=== PATIENT | male | born 1955 | race Caucasian/White ===

== ENCOUNTER 2024-03-10 18:10 | Emergency (ER) | payer MEDICARE, SELFPAY ==
[2024-03-10 18:20] VITALS: BP 117/78
[2024-03-10 18:33] VITALS: BP 133/71
[2024-03-10 19:00] VITALS: BP 142/63
[2024-03-10] MEDS: ZOFRAN 4 MG IV (19:32)
[2024-03-10] MEDS: NSS 1000 IV (19:32)
[2024-03-10] MEDS: MORPHINE SULFATE 4 MG IV ×2 (19:33→22:39)
[2024-03-10 19:44] VITALS: BP 136/83
[2024-03-10 19:57] LABS: % Basophils 0.4 % (0-2); % Eosinophils 0.1 % (0-6); % Lymphocytes 4.8 % (20.5-51.1); % Monocytes 5.9 % (1.7-9.3); % Neutrophils 87.8 % (42.2-75.2); Absolute Basophils 0.1 10^3/uL (0-0.2); Absolute Immature Granulocytes 0.2 10^3/uL (0-0.05); Absolute Lymphocytes 0.8 10^3/uL (1.2-3.4); Absolute Neutrophils 14.5 10^3/uL (1.4-6.5); Hematocrit 48.7 % (39.0-52.0); Hemoglobin 15.9 g/dL (13.0-18.0); Mean Corp Hgb Conc. 32.6 g/dL (33.0-37.0); Mean Corpuscular Hgb 30.6 pg (27.0-31.0); Mean Corpuscular Volume 93.8 fL (80.0-94.0); Mean Platelet Volume 9.8 fL (7.4-10.4); Nucleated Red Blood Cells % 0 % (-); Platelet Count 274 10^3/uL (130-400); Red Blood Cell Count 5.19 10^6/uL (4.70-6.10); Red Cell Dist. Width 11.6 % (11.5-14.5); White Blood Cell Count 16.6 10^3/uL (4.8-10.8)
[2024-03-10 20:00] VITALS: BP 127/77
[2024-03-10 20:11] LABS: ALT (SGPT) 25 U/L (0-50); AST (SGOT) 27 U/L (17-59); Albumin 4.3 g/dl (3.5-5.0); Alkaline Phosphatase 92 U/L (38-126); Blood Urea Nitrogen 21 mg/dl (9-20); Calcium 8.9 mg/dl (8.4-10.2); Carbon Dioxide 28 mmol/L (22-30); Chloride 99 mmol/L (98-107); Glucose 160 mg/dl (70-99); Potassium 4.9 mmol/L (3.5-5.1); Sodium 135 mmol/L (135-145); Total Bilirubin 0.3 mg/dl (0.2-1.3); Total Protein 7.2 g/dl (6.3-8.2); eGFR > 60.00
[2024-03-10 20:17] LABS: Troponin I < 0.012 ng/ml
[2024-03-10] MEDS: MAALOX 40 PO (20:24)
[2024-03-10 20:30] LABS: D-Dimer 1.45 ug/mlFEU (0.00-0.50)
[2024-03-10] MEDS: PROTONIX IV 40 MG IV (22:38)
[2024-03-10] MEDS: ROCEPHIN 1000 MG IV (22:54)
[2024-03-10 23:15] LABS: COVID-19 Antigen Negative (Negative)
--- NOTE | 2024-03-10 23:21 | ED.GENMED ---
History of Present Illness
General
Chief Complaint: Chest Pain
Source: patient
Exam Limitations: none
Time Seen by Provider: 03/10/24 19:09
Nursing documentation reviewed up to this point in time: agreed with
History of Present Illness
History of Present Illness:
Patient to ED [facility] complaint of severe ant. chest pain. Staters he had a similar episode approx 1 week ago. He was evaluated at [facility]. Reports cardiac event was ruled out. He reports that his symptoms are most likely related to
esophagitis/GERD/gastritis. Takes Pepcid and carafate. Denies fever/chlls. Reports HINTON. Chest pain does not radiate. No associated nausea or diaphoresis. Brought to ED by family for eval. Took 324mg [employer]
Past History
Past History
ED Past Medical History: GERD
ED Past Surgical History: None
Review of Systems
Review of Systems
Allergies reviewed?: Yes
All Other Systems: ROS reviewed and negative except as documented in HPI and ROS
Constitutional: Reports no symptoms
EENT: Reports no symptoms
Respiratory: Reports trouble breathing
Cardiac: Reports chest pain
ABD/GI: Reports diarrhea (yesterday)
: Reports no symptoms
Musculoskeletal: Reports no symptoms
Skin: Reports no symptoms
Neurological: Reports no symptoms
Psychiatric: Reports no symptoms
Phy Exam
General Physical Exam
General Presentation: well appearing and no apparent distress
General age: appears stated age
General Skin: warm and dry
General Habitus: normal
Cardiovascular Exam
Cardiovascular Exam: regular rate/rhythm and no edema
Pulmonary Exam
Pulmonary Exam: lungs clear, no respiratory distress and chest non tender
Musculoskeletal Exam
Musculoskeletal Exam: full ROM and neuro vasc intact
Skin Exam
Skin Exam: normal color, warm/dry and no rash
Psychiatric Exam
Psychiatric Exam: normal mood/affect
Scores
Heart Score for Chest Pain Patients
STEMI patient?: No
History: Slightly or Non-Suspicious
ECG: Normal
Age: >/= 65 years
Risk Factors: 1 or 2 Risk Factors
Troponin: </= Normal Limit
Heart Score for Chest Pain Patients: 3
Heart Score Risk: 2.5% MACE over next 6 weeks
Course
Orders/Labs/Results
Orders:
Orders
03/10/24 18:13
Electrocardiogram (*1) Urgent
Reason for Study: Chest Pain
EKG- Treatment ONCE
03/10/24 19:21
CR Chest - 2 Views Urgent
Comment:
Reason For Exam: chestpain
03/10/24 19:22
0.9% Sodium Chloride 1000 ml [Nss] 1,000 ml IV BOLUS
Morphine Sulfate 4 mg IV NOW STA
Ondansetron Injectable [Zofran] 4 mg IV NOW STA
03/10/24 19:34
Complete Blood Count/With Diff Urgent
Comprehensive Metabolic Panel Urgent
D-Dimer Urgent
Troponin I Urgent
03/10/24 20:18
Mag Hydrox/Al Hydrox/Simeth [Maalox] 30 ml Phenobarb/Hyoscy/Atropine/Scop [] 10 ml PO NOW
03/10/24 20:22
Mag Hydrox/Al Hydrox/Simeth [Maalox] 30 ml .ROUTE .STK-MED ONE
Phenobarb/Hyoscy/Atropine/Scop [] 10 ml .ROUTE .STK-MED ONE
03/10/24 21:09
CT Chest Pe Study Urgent
Comment:
Reason For Exam: chest pain, elevated Ddimer
03/10/24 22:25
Amoxicillin 875 mg/Clav 125 mg [Augmentin 875 mg/125 mg] 1 tablet PO NOW STA
Morphine Sulfate 4 mg IV NOW STA
Pantoprazole [Protonix IV] 40 mg IV NOW STA
03/10/24 22:40
CefTRIAXone [Rocephin] 1,000 mg IV NOW STA
03/10/24 22:57
COVID-19 Antigen Urgent
Source: Nasal Swab
Influenza A+B Rapid Molecular Urgent
LENKA Source: Nasal Swab
Specimen Description:
Abnormal Lab Results
03/10/24
19:34
WBC 16.6 H 10^3/uL
(4.8-10.8)
MCHC 32.6 L g/dL
(33.0-37.0)
Abs Immat Gran (auto) 0.2 H 10^3/uL
(0-0.05)
Absolute Neuts (auto) 14.5 H 10^3/uL
(1.4-6.5)
Absolute Lymphs (auto) 0.8 L 10^3/uL
(1.2-3.4)
Absolute Monos (auto) 1.0 H 10^3/uL
(0.1-0.6)
Immature Gran % 1.0 H %
(0-0.5)
Neutrophils % 87.8 H %
(42.2-75.2)
Lymphocytes % 4.8 L %
(20.5-51.1)
D-Dimer 1.45 H ug/mlFEU
(0.00-0.50)
BUN 21 H mg/dl
(9-20)
Glucose 160 H mg/dl
(70-99)
03/10/24 19:34
03/10/24 19:34
Vital Signs
Initial and Last Documented VS:
Initial Vital Signs
Temp Pulse Resp BP Pulse Ox
98.5 F 82 16 117/78 96
03/10/24 18:20 03/10/24 18:20 03/10/24 18:20 03/10/24 18:20 03/10/24 18:20
Last Documented Vital Signs
Temp Pulse Resp BP Pulse Ox
98.5 F 88 29 127/77 97
03/10/24 22:00 03/10/24 20:15 03/10/24 20:15 03/10/24 20:00 03/10/24 20:15
*Radiology
Radiology exam reviewed: radiology read reviewed
*Pulse Oximetry
Patient hypoxic: no
*Critical Care Note
Total Time (30-74mins, 75-104mins- exclusive of procedures): Not Applicable
Update Note
Update Note:
Patient to ED with complaint of chest pain. Had a similar event approx 1 week ago. Evaluated at [facility] ([facility]), non cardiac etiology. Labs reviewed. EKG, NSR, Troponin neg. Ddimer elevated. No history of DVT/PE but he does report HINTON. CT chest
completed, no evidence of PE. Bibasilar opacities noted. Atelectasis vs pneumonia. WBC elevated at 14.6. PPulse ox 97% RA. Will place on antibiotics to treat pneumonia. He did not feel that he could tolerate po antibitic tonight, requested IV
antibiotic instead. Rocephin given. Rx [facility] augmentin [facility] He is discharged home with his son. No distress noted while in ED. Given instructions on s/s to return to ED and he is agreeable to plan
ED Attending Note
-
Portions of this chart may have been created with voice recognition software.� Occasional wrong word or��sound alike� substitutions may have occurred due to the inherent limitations of voice recognition software.
Discharge Plan
Departure
Patient Disposition: Home (Routine Discharge)
Date of Disposition: 03/10/24
Time of Disposition: 22:43
Patient with high blood pressure during this ER visit?: No
Condition: Good
Covid-19: Not Applicable
Discharge Problem:
Pneumonia
Instructions: Pneumonia
Prescriptions:
New
amoxicillin-pot clavulanate 875-125 mg tablet
1 tab PO BID Qty: 20 0RF
azithromycin [Zithromax] 250 mg tablet
250 mg PO DAILY Qty: 6 0RF
Rx Instructions:
Take 2 tablets by mouth on day one, and then one tablet daily for the next 4 days.
Referrals:
UNKNOWN - PT NOT,INTERVIEWE [Family Provider] -
Interventions
Interventions:
*Risk Screen - Suicide Last Done: 03/10/24 18:20
*General Assessment Last Done: 03/10/24 18:20
*Neglect/Abuse Screening Last Done: 03/10/24 18:20
ED- Fall Risk Assessment Last Done: 03/10/24 20:13
*ED COVID-19 Vaccine History Last Done: 03/10/24 18:20
*Nursing Disposition Last Done: 03/10/24 23:21
ED- Cardiac Assessment Last Done: 03/10/24 19:48
Discharge Date and Time
Discharge Date/Time: 03/10/24 23:22
Print Language: IRISH
== END 2024-03-10 23:22 | disposition home or self-care (01) ==
LOC: EMR 18:10
PROVIDERS: Nurse Practitioner; EMERGENCY PHYSICIAN Emergency Medicine
DX: J18.9 Pneumonia, unspecified organism (principal); K21.9 Gastro-esophageal reflux disease without esophagitis
CPT/HCPCS: 99284; 96374; 96375; 96376; 96361; 71046; 71275; 80053; 84484; 85025; 85379; 87502; 87811; 93005; Q9967

== ENCOUNTER 2024-03-31 01:35 | Emergency (ER) | payer MEDICARE, SELFPAY ==
[2024-03-31 01:41] VITALS: BP 135/98
[2024-03-31 02:11] LABS: Urine Albumin Negative (Neg - Trace); Urine Bilirubin Negative (Negative); Urine Character Clear (Clear); Urine Color Yellow; Urine Glucose Negative (Negative); Urine Ketone Negative (Negative); Urine Leukocyte Negative (Negative); Urine Nitrite Negative (Negative); Urine Occult Blood Negative (Negative); Urine Specific Gravity 1.005 (<1.030); Urine Urobilinogen Negative (Neg - 1+)
--- NOTE | 2024-03-31 02:28 | ED.GENMED ---
History of Present Illness
General
Chief Complaint: Male Genito-Urinary Symptoms
Source: patient
Exam Limitations: none
Time Seen by Provider: 03/31/24 02:28
Nursing documentation reviewed up to this point in time: agreed with
History of Present Illness
History of Present Illness:
Patient presents to ED secondary to inability to urinate starting this evening, with lower abdominal pressure sensation. Over the past 1 week, patient has had difficult time urinating, requiring turning on the faucet as well as manual extension of
his penile shaft to facilitate with urination. Denies fever or chills. Denies nausea or vomiting. Denies trauma. Denies previous history of similar symptoms.
Past History
Past History
ED Past Medical History: GERD
ED Past Surgical History: None
Review of Systems
Review of Systems
Allergies reviewed?: Yes
All Other Systems: ROS reviewed and negative except as documented in HPI and ROS
Constitutional: Reports no symptoms; Denies fever
ABD/GI: Reports abdominal pain; Denies nausea or vomiting
: Reports difficulty voiding
Musculoskeletal: Reports no symptoms
Skin: Reports no symptoms
Neurological: Reports no symptoms
Phy Exam
Physical Exam
Physical Exam:
Physical Exam
General: mild distress, not acutely ill. afebrile
Head: nc/at. eomi
Neck: supple. normal range of motion
Abdomen: normal bowel sounds. not tender.
Neuro: alert and oriented x 3. no focal neurological deficits
Skin: no rash
Psychiatric: well kept. interactive and cooperative
Extremities: no edema. no calf tenderness.
Course
Orders/Labs/Results
Orders:
Orders
03/31/24 02:04
Bladder Scan As Directed
Follow Bladder Retention/Intermittent Cath Algorithm?: Yes
PRN if no void in __ hours: 12
Frequency: Per Retention Algorithm
If Bladder Scan Result >: 400
then:: Straight cath
Place catheter
Catheter- Indwelling As Directed
Reason for insertion: Acute Retention
Size: 16
Discontinue Date/Time: 04/03/24 0600
03/31/24 02:06
Urinalysis Urgent
Date Specimen was Collected: 03/31/24
Time Specimen was Collected: 02:04
Vital Signs
Initial and Last Documented VS:
Initial Vital Signs
Temp Pulse Resp BP Pulse Ox
97.4 F 98 28 135/98 98
03/31/24 01:41 03/31/24 01:41 03/31/24 01:41 03/31/24 01:41 03/31/24 01:41
Last Documented Vital Signs
Temp Pulse Resp BP Pulse Ox
97.4 F 78 20 136/84 98
03/31/24 01:41 03/31/24 02:53 03/31/24 02:53 03/31/24 02:53 03/31/24 02:53
MDM/Problems Addressed
MDM/Problems Addressed:
Bladder scan: > 800 mL urine noted
Portillo catheter inserted and 1 L urine removed, with significant improvement symptoms. Patient will be discharged home in stable condition, with leg bag, with referral to urology for an outpatient evaluation.
*Critical Care Note
Total Time (30-74mins, 75-104mins- exclusive of procedures): Not Applicable
ED Attending Note
-
Portions of this chart may have been created with voice recognition software.� Occasional wrong word or��sound alike� substitutions may have occurred due to the inherent limitations of voice recognition software.
Discharge Plan
Departure
Patient Disposition: Home (Routine Discharge)
Date of Disposition: 03/31/24
Time of Disposition: 02:28
Patient with high blood pressure during this ER visit?: Yes
Discharge Problem:
Acute urinary retention
Instructions: Urinary Retention (DC)
Prescriptions:
No Action
amoxicillin-pot clavulanate 875-125 mg tablet
1 tab PO BID Qty: 20 0RF
azithromycin [Zithromax] 250 mg tablet
250 mg PO DAILY Qty: 6 0RF
Rx Instructions:
Take 2 tablets by mouth on day one, and then one tablet daily for the next 4 days.
Referrals:
Ciro Mcintyre MD [Active] -
Activity Restrictions/Additional Instructions:
As discussed, please follow up with referred urologist for further evaluation and treatment.
Interventions
Interventions:
*Risk Screen - Suicide Last Done: 03/31/24 01:41
*General Assessment Last Done: 03/31/24 02:01
*Neglect/Abuse Screening Last Done: 03/31/24 01:41
ED- Fall Risk Assessment Last Done: 03/31/24 02:01
*Nursing Disposition Last Done: 03/31/24 02:53
ED-Male Genitourinary Assessment Last Done: 03/31/24 02:01
Discharge Date and Time
Discharge Date/Time: 03/31/24 02:56
Print Language: PORTUGUESE
[2024-03-31 02:53] VITALS: BP 136/84
--- NOTE | 2024-04-01 15:51 | TRANSFER ---
Patient has old latex winchester removed by this RN. New 14 F winchester latex free placed with urojet given per md winchester verbal order. Patient tolerated procedure.
== END 2024-03-31 02:56 | disposition home or self-care (01) ==
LOC: EMR 01:35
PROVIDERS: EMERGENCY PHYSICIAN Emergency Medicine; FAMILY PHYSICIAN Internal Medicine
DX: R33.9 Retention of urine, unspecified (principal); R03.0 Elevated blood-pressure reading, without diagnosis of hypertension
CPT/HCPCS: 99283; 51798; 51702; 81003

== ENCOUNTER 2024-04-07 13:18 | Inpatient (IN) | payer MEDICARE, SELFPAY ==
[2024-04-07] VITALS (7 sets, daily range): BP systolic 103–133; BP diastolic 70–78; BMI 29.7; BMI 29.5
--- NOTE | 2024-04-07 00:08 | ED.GENMED ---
History of Present Illness
General
Chief Complaint: Dizziness
Source: patient
Exam Limitations: none
Time Seen by Provider: 04/07/24 00:08
Nursing documentation reviewed up to this point in time: agreed with
History of Present Illness
History of Present Illness:
This a pleasant 68-year-old male presents the emergency department with palpitations and chest discomfort. Patient has a history of GERD and is unable to take NSAIDs. Patient has BPH and has an indwelling Portillo catheter. Patient has had burning
chest pain which she has attributed to his reflux. Tonight he had a different type of chest pain, exacerbated with deep breathing. He states that this is distinctly different than the pain he is used to. Patient denies fever, chills, nausea or
vomiting. He denies shortness of breath.
Past History
Past History
ED Past Medical History: GERD
ED Past Surgical History: None
Phy Exam
General Physical Exam
General Presentation: well appearing and no apparent distress
General Skin: warm and dry
General Habitus: normal
General Mental: alert
General Hydration: appears well hydrated
ENT Exam
ENT Exam: EOMI, pharynx normal, neck supple and normocephalic
Eye Exam
Eye Exam: PERRL, cornea clear and conjunctiva normal
Cardiovascular Exam
Cardiovascular Exam: regular rate/rhythm, no edema, no murmur, normal peripheral pulses and other (No friction rub)
Pulmonary Exam
Pulmonary Exam: lungs clear, no respiratory distress, no rales, no crackles, no rhonchi, no stridor, no wheezing and no cough
Gastrointestinal Exam
Gastrointestinal Exam: normal bowel sounds, non tender, soft, no organomegaly, no pulsatile mass and non distended
Genitourinary Exam Male
Exam Male: other (Portillo catheter)
Neurological Exam
Neurological Exam: alert, oriented x3, no motor deficits and speech normal
Musculoskeletal Exam
Musculoskeletal Exam: full ROM and no edema
Skin Exam
Skin Exam: normal color, warm/dry, no rash and no petechia
Psychiatric Exam
Psychiatric Exam: normal mood/affect
Course
Orders/Labs/Results
Orders:
Orders
04/07/24
Electrocardiogram (*1) Stat
Reason for Study: Chest Pain
Comment: DONE NO ORDER ENTERED
04/07/24 00:02
Electrocardiogram (*1) Urgent
Reason for Study: Vertigo / Dizzy
EKG- Treatment ONCE
04/07/24 00:17
CXR2 [CR Chest - 2 Views ] Urgent
Comment:
Reason For Exam: chest pain
04/07/24 00:18
Complete Blood Count/With Diff Urgent
Comprehensive Metabolic Panel Urgent
Troponin I Urgent
04/07/24 01:17
CT Chest PE Study Urgent
Comment:
Reason For Exam: tachy, sudden dyspnea
04/07/24 03:37
HYDROmorphone [Dilaudid] 0.5 mg IV NOW STA
04/07/24 04:00
Admit/Transfer Patient As Directed
Co-Sign Provider:
Level of Care: Observation services
Assign to:: Telemetry
Physician / Group: hospitalist
Diagnosis: pericardial effusion
Reason for Telemetry: Chest Pain syndromes
Date to Stop Telemetry: 04/09/24
Time to Stop Telemetry: 11:00
Flush (0.9% Sodium Chloride) [Flush (Nss)] See Dose Instructions IV PER PROTOCOL
PRN Pain Medication Management As Directed
May give lesser potent ordered pain med per pt: Yes
preference::
Protocol:: Medication orders for pain may be administered in a
manner that supports deferring to patient preference
when the pt is:
- Requesting an ordered lesser potent pain medication.
Least to most potent pain medications are defined
as: acetaminophen < NSAID < tramadol < opioids
(morphine, oxycodone, hydromorphone).
- Requesting a lesser dose of the same medication IF
ORDERED.
- Requesting a less intrusive route of administration
if both routes are prescribed by the provider (PO <
IV).
04/07/24 04:01
Code Status As Directed
Resuscitation Status: Full Code
04/07/24 Breakfast
Cholesterol Lowering
At Your Request: Full Participation
Does patient need a safe tray?: No
Cholesterol Lowering: Sodium, 2 Gram
Levothyroxine [Synthroid] 50 mcg PO DAILY @ 0600
04/07/24 06:11
Acetaminophen [Tylenol] 650 mg PO Q6HPRN PRN
HYDROmorphone [Dilaudid] 0.5 mg IV Q4HPRN PRN
Mag Hydrox/Al Hydrox/Simeth [Maalox] 30 ml PO QIDPRN PRN
Ondansetron Injectable [Zofran] 4 mg IV Q6HPRN PRN
04/07/24 06:11
Add On- LAB Routine
Tests Added?: Body Fluid Triglycerides
Echo 2D MMode Color/Doppler Routine
Reason for Study: chest pain, ?pericardial effusion?
CARDIOLOGY CONSULT Routine
Consulting Provider: Rob Grande
Was physician already notified: No
Reason for consult: chest pain, pericardial effusion
Consult Notification Routine
Specialty to Notify: Cardiology
Date consulting provider notified: 04/07/24
Time consulting provider notified: 07:00
Notified:: Provider
Comment: tt
Consult Notification Routine
Specialty to Notify: IRAD (Interventional Radiology)
Date consulting provider notified: 04/07/24
Time consulting provider notified: 07:00
Notified:: Provider
Comment: tt
IRAD CONSULT Routine
Consulting Provider: Federico Teran
Was physician already notified: No
Reason for Consult/Procedure: diagnostic thoracentesis, L pleural effusion
Acknowledgement that appropriate orders are entered: Yes
Body Fluid Cell Count Routine
What is the Body Fluid: pleural fluid
Comment: post procedure
Body Fluid Glucose Routine
Fluid Source: Pleural
Body Fluid LDH Routine
Fluid Source: Pleural
Body Fluid Protein Routine
Fluid Source: Pleural
Body Fluid pH Routine
Fluid Source: Pleural
Fluid Culture with Gram Stain Routine
LENKA Source: Pleural Fluid
Specimen Description:
Comment: post procedure
Activity As Directed
Activity Level: With Assistance
INT (Intravenous Needle Therapy) As Directed
Comment: maintain peripheral IV access
Intake/ Output As Directed
Frequency: Per unit guidelines
Pneumatic Compression Sleeves As Directed
Type: Knee high
Vital Signs As Directed
Frequency: q4h
Weight As Directed
Frequency: Once
O2 Therapy [RESP] Routine
Nasal Cannula Liter Flow: 2 LPM
Titrate/Wean O2 to maintain O2 sat greater than (%): 90
Special Instructions: 2 liters/minute as needed for pulse oximetry less than 90%
Pulse Ox/spot Check [RESP] Routine
Quantity: 1
Special Instructions: on admission and then every shift if on oxygen
DX Deep Vein Thrombosis Video Routine
04/07/24 08:00
Famotidine [Pepcid] 20 mg PO BID
Pantoprazole [Protonix] 40 mg PO BID
Tamsulosin [Flomax] 0.4 mg PO BID
04/07/24 20:00
Colchicine 0.6 mg PO BID
04/08/24 06:00
Electrocardiogram (*1) IN AM
Reason for Study: Chest Pain
Comment: at admission and Q3H for total of 3, to be done with each troponin
CRP [C-Reactive Protein] IN AM
Cardiovascular Evaluation IN AM
ESR [Erythrocyte Sed Rate] IN AM
Glycohemoglobin (HgbA1c) IN AM
LDH IN AM
Comment: post procedure, add on to morning labs if already drawn
NT-proBNP IN AM
Total Protein IN AM
Comment: post procedure, add on to morning labs if already drawn
04/09/24 11:00
DC Protocol for Telemetry ONCE
Abnormal Lab Results
04/07/24
00:18
WBC 11.3 H 10^3/uL
(4.8-10.8)
MCHC 32.8 L g/dL
(33.0-37.0)
MPV 10.6 H fL
(7.4-10.4)
Abs Immat Gran (auto) 0.1 H 10^3/uL
(0-0.05)
Absolute Neuts (auto) 8.5 H 10^3/uL
(1.4-6.5)
Absolute Monos (auto) 1.0 H 10^3/uL
(0.1-0.6)
Immature Gran % 0.8 H %
(0-0.5)
Neutrophils % 75.5 H %
(42.2-75.2)
Lymphocytes % 13.5 L %
(20.5-51.1)
Glucose 130 H mg/dl
(70-99)
04/07/24 00:18
04/07/24 00:18
Vital Signs
Initial and Last Documented VS:
Initial Vital Signs
Pulse Resp
107 25
04/07/24 00:09 04/07/24 00:09
Last Documented Vital Signs
Temp Pulse Resp BP Pulse Ox
98.3 F 97 20 117/75 96
04/07/24 19:00 04/07/24 19:00 04/07/24 19:00 04/07/24 19:00 04/07/24 19:00
*Critical Care Note
Total Time (30-74mins, 75-104mins- exclusive of procedures): Not Applicable
Update Note
Update Note:
IMPRESSION:
Comparison with 03/10/24.
Good bolus, minimal motion. No evidence of pulmonary embolism
No evidence of aortic dissection or aneurysm.
Moderate left pleural effusion. Small right pleural effusion.
Small pericardial effusion, slightly increased vs prior.
Findings favor pulmonary edema.
Differential for the pericardial effusion includes pericarditis.
Dependent atelectasis.
EKG shows sinus tachycardia rate of 106 with normal intervals, normal axis. No evidence of acute ischemia present.
Discussed CT scan findings with patient, given his chest pain and his difficulty breathing, patient to be brought in for continued observation. Patient cannot take NSAIDs due to extreme gastritis.
ED Attending Note
-
Portions of this chart may have been created with voice recognition software.� Occasional wrong word or��sound alike� substitutions may have occurred due to the inherent limitations of voice recognition software.
Discharge Plan
Departure
Patient Disposition: Admit
Date of Disposition: 04/07/24
Time of Disposition: 02:54
Presentation/result/management discussed w/ accepting MD/DO: Hospitalist
Discharge Problem:
Acute pericardial effusion, Bilateral pleural effusion, Chest pain
Interventions
Interventions:
*Risk Screen - Suicide Last Done: 04/07/24 06:17
*General Assessment Last Done: 04/07/24 00:05
*Neglect/Abuse Screening Last Done: 04/07/24 06:07
ED- Fall Risk Assessment Last Done: 04/07/24 06:07
*ED COVID-19 Vaccine History Last Done: 04/07/24 06:17
*Nursing Disposition Last Done: 04/07/24 06:07
ED- Neurological Assessment Last Done: 04/07/24 01:28
ED- Cardiac Assessment Last Done: 04/07/24 06:11
ED Swallowing Screen Last Done: 04/07/24 04:03
Discharge Date and Time
Discharge Date/Time: 04/07/24 06:12
[2024-04-07 00:29] LABS: % Basophils 0.6 % (0-2); % Eosinophils 1.1 % (0-6); % Immature Granulocytes 0.8 % (0-0.5); % Lymphocytes 13.5 % (20.5-51.1); % Monocytes 8.5 % (1.7-9.3); % Neutrophils 75.5 % (42.2-75.2); Absolute Basophils 0.1 10^3/uL (0-0.2); Absolute Eosinophils 0.1 10^3/uL (0-0.7); Absolute Immature Granulocytes 0.1 10^3/uL (0-0.05); Absolute Lymphocytes 1.5 10^3/uL (1.2-3.4); Absolute Neutrophils 8.5 10^3/uL (1.4-6.5); Hemoglobin 14.1 g/dL (13.0-18.0); Mean Corp Hgb Conc. 32.8 g/dL (33.0-37.0); Mean Corpuscular Hgb 29.7 pg (27.0-31.0); Mean Corpuscular Volume 90.7 fL (80.0-94.0); Mean Platelet Volume 10.6 fL (7.4-10.4); Nucleated Red Blood Cells % 0 % (-); Platelet Count 329 10^3/uL (130-400); Red Blood Cell Count 4.74 10^6/uL (4.70-6.10); Red Cell Dist. Width 12.2 % (11.5-14.5); White Blood Cell Count 11.3 10^3/uL (4.8-10.8)
[2024-04-07 00:42] LABS: ALT (SGPT) 33 U/L (0-50); AST (SGOT) 27 U/L (17-59); Albumin 3.8 g/dl (3.5-5.0); Alkaline Phosphatase 94 U/L (38-126); Blood Urea Nitrogen 16 mg/dl (9-20); Carbon Dioxide 26 mmol/L (22-30); Chloride 99 mmol/L (98-107); Estimated Creatinine Clearance 59 ml/min; Glucose 130 mg/dl (70-99); Potassium 4.3 mmol/L (3.5-5.1); Sodium 137 mmol/L (135-145); Total Bilirubin 0.4 mg/dl (0.2-1.3); Total Protein 6.9 g/dl (6.3-8.2); eGFR > 60.00
[2024-04-07 00:58] LABS: Troponin I < 0.012 ng/ml
--- NOTE | 2024-04-07 03:38 | HPS.HSE ---
Family Physician
-
Family Physician: Cristiano Barraza MD
Chief Complaint
-
Chest pain
History of Present Illness
This is a 68-year-old with past medical history significant for GERD, BPH currently with indwelling cath who presents to the emergency department with episode of chest pain and tachycardia.
Patient reports history of severe GERD which she reports as a burning sensation that radiates into his chest. He reports exacerbation of GERD recently due to his travel to visit his father who is in hospice. Upon return he is continue to take his
usual medications and feels like his GERD is somewhat under control. He reported that he was otherwise in usual state of health tonight when he suddenly developed more shortness of breath. He reported that he had chest pain with inspiration. He
denies any diaphoresis. He denies of feeling dizzy or lightheaded. Patient denies any ankle edema. He denies any history of orthopnea or dyspnea on exertion. He has had prior stress test which have been negative. Patient denies palpitations.
He reported that he had recent upper respiratory symptoms while visiting his father and that has resolved. He denies having fevers or chills. He denied having a cough. Patient denies any other medications.
Recent health has been complicated by development of BPH requiring indwelling catheter. He is pending follow-up voiding trial this week.
In the emergency department he was afebrile, blood pressure of 135/98 with a pulse of 98. ECG shows sinus tachycardia at 106. He had criteria for low voltage QRS. No acute ST or T wave changes. Nonspecific T wave abnormalities in the inferior
leads. CBC was unremarkable. Electrolytes BUN/creatinine were unremarkable. Troponin was negative at 0.[address] chest angiogram shows moderate left pleural effusion, small right pleural effusion and a small pericardial effusion slightly
increased from prior imaging. Findings favor pulmonary edema with differential for pericardial effusion including pericarditis.
Medical History
Past Medical History
Past Medical History: Reports GERD and Other (BPH)
Past Surgical History: Reports None
Social History
Tobacco: Non-smoker
Alcohol: None
Drug: None
Personal:
Living: With Family
Employment: Retired
Family History
Family History: Not pertinent
Allergies / Home Medications
Allergies reflects when Allergies were last updated in [employer].
Home Medications with original date entered in [employer]
Allergy/Medication List:
Allergies
Allergy/AdvReac Type Severity Reaction Status Date / Time
latex Allergy Rash Verified 03/31/24 01:43
Home Medications
Rabeprazole 20 mg tablet 20 mg p.o. twice daily
Pepcid 20 mg tablet 20 mg p.o. twice daily
Synthroid 50 mcg tablet 50 mcg p.o. daily
Tamsulosin 0.4 mg capsule, 0.4 mg p.o. twice daily
Review of Systems
-
History Source: Patient
Constitutional: Reports No Symptoms
EENT: Reports No Symptoms
Respiratory: Reports No Symptoms
Cardiac: Reports Chest Pain
Abdomen/GI: Reports No Symptoms
: Reports No Symptoms
Musculoskeletal: Reports No Symptoms
Skin: Reports No Symptoms
Neurological: Reports No Symptoms
Endocrine: Reports No Symptoms
Hematologic/Lymphatic: Reports No Symptoms
Psych: Reports No Symptoms
Physical Exam
Physical Exam
General: Well Developed, Well Nourished and Pain
HEENT: NormoCephalic, Anicteric, Moist mucous membranes and Atraumatic
Respiratory: Clear
Cardiac: S1/S2 and Regular Rhythm
Breast: Deferred by me
GI: Soft, Non Tender, Non Distended and Normal Bowel Sounds
Rectal: Deferred by Provider
Genito-urinary: Clear Urine
Musculoskeletal: No Clubbing, No Cyanosis and No Edema
Skin: Warm
Neuro: AO x 3 and Nonfocal/grossly intact
Hematologic/Lymphatic: No Lymphadenopathy
Psych: Calm
Laboratory Results
-
04/07/24 00:18
01/19/25 00:18
Laboratory Results
Total Bilirubin 0.4 mg/dl (0.2-1.3) 04/07/24 00:18
AST 27 U/L (17-59) 04/07/24 00:18
ALT 33 U/L (0-50) 04/07/24 00:18
Alkaline Phosphatase 94 U/L (38-126) 04/07/24 00:18
Troponin I < 0.012 ng/ml 04/07/24 00:18
Data Reviewed
-
Diagnostic Radiology: Image Personally Visualized and interpreted
CT Scan: Report Reviewed by me
Medical Tests (Nuc Med, Echo, EKG etc): Image Personally Visualized and interpreted
Lab Data: Labs Reviewed by me
Old Records: Reviewed
Impression/Plan
-
IMPRESSION:
Patient with pleuritic chest pain found to have pericardial effusion as well as bilateral pleural effusions. Concern for pericarditis. Imaging suggests development of pleural effusion since Mar 10. Xray on with possible PNA. Xray today
without consolidation but shows moderate left and small right pleural effusions which way be related to pericarditis/inflammation possible secondary to recent viral infection. No h/o connective tissue disease. Troponin is negative and patient has
no h/o CAD. No PE on the CT angio.
PLAN:
1. Chest pain - Pleuritis with pericardial effusion, pleural effusions. Low voltages on ECG but no ischemia. Trop negative. Suspect acute pericarditis. HD stable and patient without signs of tamponade.
- admit to telemetry
- check crp/esr
- IR for L sided thoracentesis to rule out infection/malignancy
- check bnp, Echo
- cannot tolerate NSAIDs due to severe GERD, Colchicine 1mg q 12 x 1 day, then 0.5mg q 12
- cardiology consult
2. BPH
- maintain urinary catheter
- continue tamsulosin 0.4 bid
3. GERD
- rabeprazole 20mg bid
- pepcid 20mg bid
- prn maalox
DVT PPX - SCD for now
Code status - Full code
[2024-04-07] MEDS: DILAUDID 0.5 MG IV ×2 (03:51→18:27)
--- NOTE | 2024-04-07 07:02 | W.PN.HOSP.TC ---
Today's Communication/Plan
-
pain control
trial colchicine 0.6 mg BID
ID eval
IR eval left pleural effusion thoracentesis
Follow up ECHO tomorrow Monday
Assessment / Plan
Assessment / Plan
Physical Exam
General: No acute distress appears comfortable
HEENT: NormoCephalic, Anicteric, Moist mucous membranes and Atraumatic
Respiratory: decreased breath sounds basilar
Cardiac: S1/S2 and Regular Rhythm
GI: Soft, Non Tender, Non Distended and Normal Bowel Sounds
Genito-urinary: Clear Urine Portillo in place (placed prior to admission outpatient, planned for outpatient trial of void later in the week)
Musculoskeletal: No Clubbing, No Cyanosis and No Edema
Skin: Warm
Neuro: AO x 3 and Nonfocal/grossly intact
Psych: Calm
68M pleuritic chest pain found to have pericardial effusion as well as bilateral pleural effusions. Concern for pericarditis. Imaging suggests development of pleural effusion since Mar 10. X-ray on with possible PNA. X-ray this
hospitalization without consolidation but shows moderate left and small right pleural effusions which way be related to pericarditis/inflammation possible secondary to recent viral infection. No h/o connective tissue disease. Troponin is negative
and patient has no h/o CAD. No PE on the CT angio.
PLAN:
# Chest pain - Pleuritis with pericardial effusion, pleural effusions.
#Suspect acute pericarditis.
-Trop neg
-HD stable and patient without signs of tamponade.
- cont cardiac tech
-pain control
- IR evferoz requested for L sided thoracentesis to rule out infection/malignancy
- ECHO Monday
- cannot tolerate NSAIDs due to severe GERD
- cardiology consult appreciated colchicine 0.6 mg BID started
-Patient relates symptoms started after he ingested raw whale meat in [place]
-ID eval requested
# BPH
- maintain urinary catheter
- continue tamsulosin 0.4 bid
# GERD
- rabeprazole 20mg bid (substituted with Protonix in hospital)
- pepcid 20mg bid reduced to daily d/t Cr clearance
- prn maalox
#Hypothyroidism
cont home synthroid
DVT PPX - SCD for now
Code status - Full code
I spent a total of 50 minutes with the patient or on the floor. More than 50% of this time involved counseling and coordination of care.
Anticipated Discharge: 24 - 48 hours
Subjective/Interval History
-
Date of Service: April 07, 2024
No acute distress resting comfortably in bed. Reports significant improvement in symptoms. Pleuritic pain persists, difficulty taking deep breath, but otherwise stable respiratory status on room air.
Objective Data
-
Labs:
Laboratory Results
04/07/24
00:18
WBC 11.3 H
Hgb 14.1
Hct 43.0
Plt Count 329
Sodium 137
Potassium 4.3
Chloride 99
Carbon Dioxide 26
BUN 16
Creatinine 1.2
Glucose 130 H
Calcium 9.0
Total Bilirubin 0.4
AST 27
ALT 33
Alkaline Phosphatase 94
Vital Signs:
Vital Signs
Temp Pulse Resp BP Pulse Ox
98.1 F 93 20 120/71 98
04/07/24 06:22 04/07/24 06:22 04/07/24 06:22 04/07/24 06:22 04/07/24 06:22
I&O
04/06/24 04/07/24 04/08/24
06:59 06:59 06:59
Output Total 600 / 600
Balance -600 / -600
[2024-04-07] MEDS: FLOMAX 0.4 MG PO ×2 (07:52→20:13)
[2024-04-07] MEDS: SYNTHROID 50 MCG PO (07:53)
[2024-04-07] MEDS: PEPCID 20 MG PO (07:54)
[2024-04-07] MEDS: PROTONIX 40 MG PO ×2 (07:55→20:13)
--- NOTE | 2024-04-07 11:54 | CON.CAR ---
Consultation
Consultation Request
Date/Time Consultation Requested: April 07, 2024
Date/Time Consultation Performed: April 07, 2024
Requesting Provider: Hospitalist
Performing Provider: Dr. Rob Grande
Reason for Consultation: Chest pain and pericardial effusion
Medical History
-
Chief Complaint: Chest pain
History of Present Illness:
Patient is a 68-year-old male who presented to the emergency department with chest discomfort. He has a medical history notable for gastroesophageal reflux disease and BPH, has an indwelling catheter. Patient reports that he has rather severe
reflux disease often with burning radiating into the chest. He developed a more sudden chest pain that is worse with inspiration, different than his gastroesophageal reflux. He has had no fevers chills or night sweats. On presentation to the
emergency department he is hemodynamically stable with a blood pressure of 135/98 and a pulse of 98 bpm. Evaluation included troponin values which were negative (< 0.012) x 2. A CT scan of the chest was obtained showing moderate left pleural
effusion, small right pleural effusion and a moderate pericardial effusion. Of note, CT scan of the chest from March 10, 2024 also noted a small to moderate pericardial effusion. No pleural effusions at that time.
Cardiology is consulted regarding the finding of pericardial effusion as well as patient's complaint of chest pain
ECG finds sinus rhythm at [address] and T wave abnormalities. Subsequent EKG finds sinus tachycardia 106 bpm with borderline low voltages.
Troponin values x 2 are less than 0.012
CBC finds elevated white blood cell count at 11.3, hemoglobin 14 [address] scan of the chest finds moderate pericardial effusion as well as moderate left pleural and small right pleural effusion (CT scan of the chest 03/10/2024 noted small to moderate pericardial effusion)
Past medical history
Gastroesophageal reflux disease
BPH
Social History
Tobacco: Non-Smoker
Alcohol: None
Drug: None
Personal:
Living: With Family
Employment: Retired
Family History
Family History: Reviewed & Not Pertinent
Allergies / Home Medications
Allergy/AdvReac Type Severity Reaction Status Date / Time
latex Allergy Rash Verified 03/31/24 01:43
�Medication �Instructions �Recorded �Confirmed �Type
alfuzosin 10 mg tablet,extended 10 mg PO DAILY 04/07/24 04/07/24 History
release 24 hr (Uroxatral)
aluminum-mag hydroxide-simethicone 5 ml PO PRN PRN indigestion 04/07/24 04/07/24 History
200 mg-200 mg-20 mg/5 mL oral susp
famotidine 20 mg tablet 20 mg PO BID 04/07/24 04/07/24 History
levothyroxine 50 mcg tablet 50 mcg PO DAILY 04/07/24 04/07/24 History
(Synthroid)
rabeprazole 20 mg tablet,delayed 20 mg PO BID 04/07/24 04/07/24 History
release
tamsulosin 0.4 mg capsule (Flomax) 0.4 mg PO BID 04/07/24 04/07/24 History
Review of Systems
-
History Source: Patient
All other systems: Negative unless noted
Constitutional: No Symptoms
EENT: No Symptoms
Respiratory: No Symptoms
Cardiac: Chest Pain
Abdomen/GI: No Symptoms
: No Symptoms
Musculoskeletal: No Symptoms
Skin: No Symptoms
Neurological: No Symptoms
Endocrine: No Symptoms
Hematologic/Lymphatic: No Symptoms
Physical Exam
Vital Signs
Temp Pulse Resp BP Pulse Ox
98.4 F 93 16 103/70 94
04/07/24 07:43 04/07/24 07:43 04/07/24 07:43 04/07/24 07:43 04/07/24 07:43
Lab Results
04/07/24 00:18
04/07/24 00:18
Troponin I < 0.012 ng/ml 04/07/24 00:18
Physical Exam
General: Well Developed, Well Nourished, No Apparent Distress and Comfortable
HEENT: Normocephalic, Anicteric and Moist Mucous Membranes
Respiratory: Clear
Cardiac: S1/S2 and Regular Rhythm (Normal S1 and S2, no S3 no S4, grade 1/6 apical holosystolic murmur and no rub)
Breast: Deferred by me
GI: Soft, Non Tender, Non Distended and Normal Bowel Sounds
Rectal: Deferred by Provider
Musculoskeletal: No Clubbing, No Cyanosis and No Edema
Skin: Warm and Dry
Neuro: Awake, Alert, Oriented and AO x 3
Psych: Calm
Impression / Plan
-
Impression:
Chest pain with pleuritic component
Pericardial effusion
Gastroesophageal reflux
Recommendations:
Interestingly, he was found to have a small to moderate-sized pericardial effusion on a CAT scan that was done in February 2024 when he presented to the emergency department with anterior chest discomfort.
CT scan now shows moderate-sized pericardial effusion as well as bilateral pleural effusions. His presentation of chest discomfort is consistent with a pleuritic component to his discomfort.
Troponins are negative. EKG does not show the typical pericarditis findings 1 would expect but clinically he likely has at least some component of pericarditis which is responsible for his chest discomfort.
Etiology of his pleural effusion is as of yet unknown
I recommended colchicine 0.6 mg twice daily and ibuprofen 600 mg twice daily, but he refuses over concern regarding his severe GERD
Check echocardiogram in the morning
Further consideration for evaluation and recommendation once we have obtained echocardiogram
Interestingly, he lives in [place] and tells me that last month he was at an indigenous event where he ate raw whale meat marinated in whale blood. Toxoplasma gongii can be found in raw whale meat but rarely infects healthy people (more of a concern
in immunocompromised and ). Toxoplasma gondii can cause pericardial effusion
total time 80 min
Data Reviewed
-
EKG: Tracing Personally Visualized and interpreted
Radiology: Report Reviewed by me
CT Scan: Report Reviewed by me
Labs: Labs Reviewed by me
Old Records: Reviewed
--- NOTE | 2024-04-07 12:41 | CM ---
CM reviewed chart, patient seen bedside, initial assessment completed. Patient resides independently in a ranch style home, a few steps to enter. Patient denies use of DME, VN, or SNF history. Patient PCP Dr. Barraza, pharmacy [facility],
confirms prescription coverage. VAN form vemahsay reviewed, provided with copy, placed in chart. CM will continue to follow for all discharge planning needs.
Plan; home no needs.
[2024-04-07] MEDS: COLCHICINE 0.6 MG PO (20:13)
[2024-04-07] MEDS: MAALOX 30 ML PO (23:20)
[2024-04-08 03:00] VITALS: BP 108/72
[2024-04-08] MEDS: SYNTHROID 50 MCG PO (05:25)
[2024-04-08] MEDS: MAALOX 30 ML PO (05:29)
--- NOTE | 2024-04-08 06:22 | W.PN.HOSP.TC ---
Today's Communication/Plan
-
pain control
colchicine 0.6 mg BID
ID eval
IR eval left pleural effusion thoracentesis
Follow up ECHO
cipro ear drop
Assessment / Plan
Assessment / Plan
Physical Exam
General: No acute distress appears comfortable
HEENT: NormoCephalic, Anicteric, Moist mucous membranes and Atraumatic
Respiratory: decreased breath sounds basilar
Cardiac: S1/S2 and Regular Rhythm
GI: Soft, Non Tender, Non Distended and Normal Bowel Sounds
Genito-urinary: Clear Urine Portillo in place (placed prior to admission outpatient, planned for outpatient trial of void later in the week)
Musculoskeletal: No Clubbing, No Cyanosis and No Edema
Skin: Warm
Neuro: AO x 3 and Nonfocal/grossly intact
Psych: Calm
68M pleuritic chest pain found to have pericardial effusion as well as bilateral pleural effusions. Concern for pericarditis. Imaging suggests development of pleural effusion since Mar 10. X-ray on with possible PNA. X-ray this
hospitalization without consolidation but shows moderate left and small right pleural effusions which way be related to pericarditis/inflammation possible secondary to recent viral infection. No h/o connective tissue disease. Troponin is negative
and patient has no h/o CAD. No PE on the CT angio.
PLAN:
# Chest pain - Pleuritis with pericardial effusion, pleural effusions.
#Suspect acute pericarditis.
-Trop neg
-HD stable and patient without signs of tamponade.
- cont track hoe operator
-pain control
- IR evferoz requested for L sided thoracentesis to rule out infection/malignancy
- ECHO pending
- cannot tolerate NSAIDs due to severe GERD
- cardiology consult appreciated colchicine 0.6 mg BID started, tolerating, cont
-Patient relates symptoms started after he ingested raw whale meat in [place]
-ID eval requested
# BPH
- maintain urinary catheter
- continue tamsulosin 0.4 bid
# GERD
#upset stomach
- home rabeprazole 20mg bid resumed patient's own med per pt request
- pepcid 20mg bid reduced to daily d/t Cr clearance
- prn maalox
-resume home carafate
#Hypothyroidism
cont home synthroid
#right ear ache
cipro ear drop ordered 04/08/24
DVT PPX - SCD for now
Code status - Full code
I spent a total of 50 minutes with the patient or on the floor. More than 50% of this time involved counseling and coordination of care.
Anticipated Discharge: 24 - 48 hours
Subjective/Interval History
-
Date of Service: April 08, 2024
No acute distress, resting comfortably in bed, reports upset stomach.
Objective Data
-
Labs:
Laboratory Results
04/08/24
06:00
WBC Pending
Hgb Pending
Hct Pending
Plt Count Pending
Sodium Pending
Potassium Pending
Chloride Pending
Carbon Dioxide Pending
BUN Pending
Creatinine Pending
Glucose Pending
Calcium Pending
Vital Signs:
Vital Signs
Temp Pulse Resp BP Pulse Ox
98.9 F 109 22 108/72 96
04/08/24 03:00 04/08/24 03:00 04/08/24 03:00 04/08/24 03:00 04/08/24 03:00
I&O
04/06/24 04/07/24 04/08/24
06:59 06:59 06:59
Intake Total 2059
Output Total 600 / 600 1300 / 1300
Balance -600 / -600 760 / 760
[2024-04-08 07:24] VITALS: BP 112/73
[2024-04-08 08:15] LABS: Hematocrit 40.4 % (39.0-52.0); Hemoglobin 13.4 g/dL (13.0-18.0); Mean Corp Hgb Conc. 33.2 g/dL (33.0-37.0); Mean Corpuscular Hgb 29.5 pg (27.0-31.0); Mean Corpuscular Volume 88.8 fL (80.0-94.0); Mean Platelet Volume 10.6 fL (7.4-10.4); Platelet Count 305 10^3/uL (130-400); Red Blood Cell Count 4.55 10^6/uL (4.70-6.10); Red Cell Dist. Width 12.5 % (11.5-14.5)
[2024-04-08 08:25] LABS: Blood Urea Nitrogen 10 mg/dl (9-20); Calcium 8.3 mg/dl (8.4-10.2); Carbon Dioxide 27 mmol/L (22-30); Chloride 98 mmol/L (98-107); Estimated Creatinine Clearance 57 ml/min; Glucose 120 mg/dl (70-99); HDL Cholesterol 26 mg/dl; LDH 136 U/L (120-246); LDL Cholesterol, Calculated 105 mg/dl; Magnesium 2.1 mg/dl (1.6-2.3); Phosphorus 3.1 mg/dl (2.5-4.5); Potassium 4.4 mmol/L (3.5-5.1); Sodium 135 mmol/L (135-145); Total Cholesterol 146 mg/dl (50-199); Triglyceride 75 mg/dl (10-149); Very Low Density Lipoprotein 15 mg/dl (0-30); eGFR > 60.00
[2024-04-08 08:31] LABS: Erythrocyte Sed Rate 43 mm/hour (0-20)
[2024-04-08 08:32] LABS: NT-proBNP 438 pg/ml
[2024-04-08 09:07] LABS: Glycohemoglobin (HgbA1c) 5.9 % (4.0-5.6)
[2024-04-08] MEDS: PROTONIX PO (09:17)
[2024-04-08] MEDS: FLOMAX 0.4 MG PO ×2 (09:19→19:29)
[2024-04-08] MEDS: PEPCID 20 MG PO (09:19)
[2024-04-08] MEDS: COLCHICINE 0.6 MG PO ×2 (09:19→19:29)
[2024-04-08 11:00] VITALS: BP 110/65
--- NOTE | 2024-04-08 11:18 | CON.ID ---
Consultation
-
Date/Time Consultation Requested: April 07, 2024 1322
Date/Time Consultation Performed: April 08, 2024 1120
Requesting Provider: Dr. Funmilayo Vilchis
Performing Provider: Dr. Henny Diaz
Reason for Consultation: Pericarditis with effusion, history of raw whale meat ingestion
Chief Complaint / Past History
Chief Complaint
Chest pain with breathing
History of Present Illness
The patient is from his at bedside. 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 He lives part here in [facility] and part of the year in
[place]. While in [place] mid January 2024, he attended a event at the [employer]. He ate raw whale meat and fermented whale blood. His states that he had episode of diarrhea afterwards. He then started having muscle
pains especially upper torso. In mid February, he developed pleuritic chest pain. He went to [facility] with negative cardiac workup. He was told chest pain was from GERD/esophagitis. On March 10, he presented to [place] [facility] ER with similar symptoms. COVID and flu negative. CTA of chest negative for PE, small-moderate pericardial effusion, positive bibasilar opacities noted atelectasis versus pneumonia. He was discharged on Z-pack and Augmentin x 10 days.
Patient took only 3 days worth of the antibiotics since he was not convinced he had pneumonia. 1 week prior to this admission, he was not able to void and was diagnosed with urinary retention requiring Winchester placement. His left chest pain became
severe and therefore he came to the ER on April 07. No cough. No shortness of breath. No headache rhinorrhea or sore throat. No nausea or vomiting. No abdominal pain. His stools have been loose or soft. No flank pain. He has 2 cats. In ED
he had repeat chest CT which showed slight increase of the moderate pericardial effusion. New moderate left and minor right pleural effusion. He just had left thoracentesis today.
Past History
Additional Past Medical History:
Hypothyroidism
GERD
BPH
Appendectomy
Leg laceration repair
Allergy History:
latex Allergy (Verified 03/31/24 01:43)
Rash
Medications Reviewed: Yes
Current Antibiotics:
none
Social History
Tobacco: Non-Smoker
Alcohol: None
Drug: None
Personal:
Living: With Family
Employment: Retired ()
Family History
Family History: Not Pertinent
Review of Systems
Review of Systems
General: Negative Fever or Chills
HEENT: Negative Stiff Neck, Sinus Problems, Headache or Pharyngitis
Cardiovascular: Chest Pain; Negative Edema
Respiratory: Negative Cough
Gasteroenterology: Negative Nausea, Vomiting or Diarrhea
Genital / Urological: Negative Dysuria or Flank Pain
Endocrine: Negative Weakness
Musculoskeletal: Myalgias; Negative Arthralgias
Skin / Hair / Nails: Negative Rash
Neurological: Negative Dizziness
All systems: All other systems were reviewed and were negative
Vital Signs
Temp Pulse Resp BP Pulse Ox
98.4 F 70 18 110/65 98
04/08/24 11:00 04/08/24 11:00 04/08/24 11:00 04/08/24 11:00 04/08/24 11:00
Physical Exam
Physical Exam
Constitutional: No Acute Distress and Comfortable
Head: Other (No frontal or max or sinus tenderness)
Eyes: No Conjunctival Hemorrhage and Sclera Anicteric
Pharynx: Benign
Cardiovascular: Regular Rate and S1/S2
Pulmonary: Other (Decreased breath sound at the bases)
Gastrointestinal: Soft, Non Tender, Non Distended and Normal Bowel Sounds
Genito-Urinary: Negative CVA Tenderness
Extremities: Negative Edema
Musculoskeletal: Negative Spinal Tenderness
Neurological: AO x 3; Negative Meningeal Signs
Lab / Diagnostic Study Results
04/08/24 07:40
04/08/24 07:40
Abs Immat Gran (auto) 0.1 10^3/uL (0-0.05) H 04/07/24 00:18
Absolute Neuts (auto) 8.5 10^3/uL (1.4-6.5) H 04/07/24 00:18
Absolute Lymphs (auto) 1.5 10^3/uL (1.2-3.4) 04/07/24 00:18
Absolute Monos (auto) 1.0 10^3/uL (0.1-0.6) H 04/07/24 00:18
Absolute Basos (auto) 0.1 10^3/uL (0-0.2) 04/07/24 00:18
Immature Gran % 0.8 % (0-0.5) H 04/07/24 00:18
Neutrophils % 75.5 % (42.2-75.2) H 04/07/24 00:18
Lymphocytes % 13.5 % (20.5-51.1) L 04/07/24 00:18
Monocytes % 8.5 % (1.7-9.3) 04/07/24 00:18
Eosinophils % 1.1 % (0-6) 04/07/24 00:18
Basophils % 0.6 % (0-2) 04/07/24 00:18
ESR 43 mm/hour (0-20) H 04/08/24 07:40
C-Reactive Protein 154.10 mg/L (0.0-10.00) H 04/08/24 07:40
Microbiology Results
04/07/[address]: No evidence of pulmonary embolism. Moderate pericardial effusion slightly increased. Moderate left and minor right pleural effusion, new. Adjacent compressive atelectasis.
Assessment / Plan
# Pericarditis/moderate pericardial effusion
# Left pleural effusion
# Raw whale meat and fermented whale blood consumption 01/2025
# Recent urinary retention with winchester placed 03/31/24
- 04/08/24 s/p left thoracentesis 1300cc serosanguineous fluid.
Fluid exudate. Monocytic. Cx pending
- Consumption of raw whale meat probably does not play a role in current condition.
Meat can be contaminated with Toxoplasmosis, Trichinella (no eosinophilia), mycoplasma.
Check for toxoplasma IgG, IgM, Trichinella IgG, Mycoplasma pneumonia IgG and IgM
- Continue to hold abx for now pending pleural fluid culture/workup
[2024-04-08 12:01] LABS: Body Fluid pH 7.45
[2024-04-08 12:06] LABS: Body Fluid Mononuclear 82.4 %; Body Fluid Polymorphonuclear 17.6 %; Body Fluid Second Tech ASW; Body Fluid WBC 1746 /CUMM
[2024-04-08 12:17] LABS: Body Fluid Glucose 131 mg/dl; Body Fluid LDH 212 U/L; Body Fluid Protein 4.6 g/dl
[2024-04-08] MEDS: CARAFATE 1 GRAM PO ×3 (13:11→21:40)
--- NOTE | 2024-04-08 13:21 | W.PN.CARDCBS ---
Today's Communication / Plan
-
Echo is pending
Cont colchicine 0.6 mg BID. he declined Ibuprofen over concerns about his GERD
EKG does not show typical findings for pericarditis but this is still in the differential.
Troponins negative. Consider outpt ischemic eval once improved.
Additional hx: he was found to have a small to moderate-sized pericardial effusion on a CAT scan that was done in February 2024 when he presented to the emergency department with anterior chest discomfort.
CT scan now shows moderate-sized pericardial effusion as well as bilateral pleural effusions. His presentation of chest discomfort is consistent with a pleuritic component to his discomfort.
Await echo
Interestingly, he lives in [place] and stated that last month he was at an indigenous event where he ate raw whale meat marinated in whale blood. Toxoplasma gongii can be found in raw whale meat but rarely infects healthy people (more of a concern in
immunocompromised and ). Toxoplasma gondii can cause pericardial effusion
Impression / Plan
-
.
Impression:
Chest pain with pleuritic component
Pericardial effusion
Gastroesophageal reflux
Plan:
Echo is pending
Cont colchicine 0.6 mg BID. he declined Ibuprofen over concerns about his GERD
EKG does not show typical findings for pericarditis but this is still in the differential.
Troponins negative. Consider outpt ischemic eval once improved.
Additional hx: he was found to have a small to moderate-sized pericardial effusion on a CAT scan that was done in February 2024 when he presented to the emergency department with anterior chest discomfort.
CT scan now shows moderate-sized pericardial effusion as well as bilateral pleural effusions. His presentation of chest discomfort is consistent with a pleuritic component to his discomfort.
Await echo
Interestingly, he lives in [place] and stated that last month he was at an indigenous event where he ate raw whale meat marinated in whale blood. Toxoplasma gongii can be found in raw whale meat but rarely infects healthy people (more of a concern in
immunocompromised and ). Toxoplasma gondii can cause pericardial effusion
Discussed with family member at bedside.
Progress Note - Spreader Box Operator
Subjective
Date of Service: April 08, 2024
Pt seen and examined. No complaints. No chest pain or shortness of breath.
Objective
Labs:
04/08/24 07:40
04/08/24 07:40
Labs
Hgb 13.4 g/dL (13.0-18.0) 04/08/24 07:40
Hct 40.4 % (39.0-52.0) 04/08/24 07:40
Plt Count 305 10^3/uL (130-400) 04/08/24 07:40
Sodium 135 mmol/L (135-145) 04/08/24 07:40
Potassium 4.4 mmol/L (3.5-5.1) 04/08/24 07:40
BUN 10 mg/dl (9-20) 04/08/24 07:40
Creatinine 1.2 mg/dL (0.7-1.3) 04/08/24 07:40
Glucose 120 mg/dl (70-99) H 04/08/24 07:40
Troponins
04/07/24
00:18
Troponin I < 0.012
Vital Signs and I&O:
Vital Signs
Temp Pulse Resp BP Pulse Ox
98.4 F 70 18 110/65 98
04/08/24 11:00 04/08/24 11:00 04/08/24 11:00 04/08/24 11:00 04/08/24 11:00
Vital Signs
Temp Pulse Resp BP Pulse Ox
98.4 F 70 18 110/65 98
04/08/24 11:00 04/08/24 11:00 04/08/24 11:00 04/08/24 11:00 04/08/24 11:00
Intake & Output
04/06/24 04/07/24 04/08/24 04/09/24
06:59 06:59 06:59 06:59
Intake Total 2059
Output Total 600 / 600 1300 / 1300
Balance -600 / -600 760 / 760
Physical Exam
Physical Exam
General: No acute distress, AAOX3
Neck: Negative JVD
Heart: Regular, Negative S3 positive S1/S2, Negative S4, No murmur
Lungs: CTA b/l, negative wheezes/rales/rhonchi
Abd: Positive BS, NT/ND, neg rebound/rigidity/guarding
Ext: Negative cyanosis/clubbing/edema
Neuro: nonfocal
--- NOTE | 2024-04-08 14:36 | CM ---
Chart reviewed and patient is now inpatient IMM provided to patient, signed and placed on chart.
Plan; To follow with patient progress, home when stable.
[2024-04-08 15:19] VITALS: BP 116/72
[2024-04-08] MEDS: CIPRO 1 DROPPERETT OTIC (15:30)
[2024-04-08] MEDS: TYLENOL 650 MG PO (18:46)
[2024-04-08] MEDS: ZOFRAN 4 MG IV (18:47)
[2024-04-08 19:14] VITALS: BP 106/67
[2024-04-08] MEDS: NON-FORMULARY ITEM 20 MG PO (19:29)
[2024-04-08 23:01] VITALS: BP 101/66
[2024-04-09 03:49] VITALS: BP 109/73
[2024-04-09] MEDS: SYNTHROID 50 MCG PO (05:47)
--- NOTE | 2024-04-09 07:25 | W.PN.HOSP.TC ---
Addendum entered and electronically signed by Funmilayo Vilchis MD 04/09/24 19:22:
Patient requesting discharge.
Discussed and patient aware of the possibility cultures may become positive, in which case patient would be called back.
AOx3, at capacity to make his own medical decisions, Patient able to verbalize his understanding and acceptance of the risk- and his willingness to comply with recommendations to come back if necessary.
Patient otherwise medically stable, discharged home with outpatient follow up recommendations.
Original Note:
Today's Communication/Plan
-
cont colchicine 0.6 mg BID
cont cipro ear drop
observe
follow serologies, cultures, cytology
Assessment / Plan
Assessment / Plan
Physical Exam
General: No acute distress appears comfortable
HEENT: NormoCephalic, Anicteric, Moist mucous membranes and Atraumatic
Respiratory: decreased breath sounds basilar
Cardiac: S1/S2 and Regular Rhythm
GI: Soft, Non Tender, Non Distended and Normal Bowel Sounds
Genito-urinary: Clear Urine Portillo in place (placed prior to admission outpatient, planned for outpatient trial of void later in the week)
Musculoskeletal: No Clubbing, No Cyanosis and No Edema
Skin: Warm
Neuro: AO x 3 and Nonfocal/grossly intact
Psych: Calm
68M pleuritic chest pain found to have pericardial effusion as well as bilateral pleural effusions. Concern for pericarditis. Imaging suggests development of pleural effusion since Mar 10. X-ray on with possible PNA. X-ray this
hospitalization without consolidation but shows moderate left and small right pleural effusions which way be related to pericarditis/inflammation possible secondary to recent viral infection. No h/o connective tissue disease. Troponin is negative
and patient has no h/o CAD. No PE on the CT angio.
PLAN:
# Chest pain - Pleuritis with pleural effusions and suspected pericardial effusion
#Suspect acute pericarditis.
-Trop neg
-HD stable and patient without signs of tamponade.
- cont satellite project site monitor
-pain control
- IR eval appreciated L sided thoracentesis 1300 mL fluid drawn 04/08/24 exudative likely 2/2 pericarditis follow cytology and culture NGTD
- ECHO appreciated EF 70-75% no pericardial effusion noted, though pleural effusion was noted
- cannot tolerate NSAIDs due to severe GERD
- cardiology consult appreciated colchicine 0.6 mg BID started, tolerating, cont
-Patient relates symptoms started after he ingested raw whale meat in [place]
-ID eval appreciated follow serologies Toxoplasma IgG IgM Trichinella IgG Mycoplasma pneumonia IgG and IgM (results pending)
# BPH
- maintain urinary catheter
- continue tamsulosin 0.4 bid
# GERD
#upset stomach
- home rabeprazole 20mg bid resumed patient's own med per pt request
- pepcid 20mg bid reduced to daily d/t Cr clearance
- prn maalox
-resume home carafate
#Hypothyroidism
cont home synthroid
#right ear ache
cipro ear drop ordered 04/08/24
symptom since improved
DVT PPX - SCD for now
Code status - Full code
Discussed with patient and significant Other Chaya
I spent a total of 40 minutes with the patient or on the floor. More than 50% of this time involved counseling and coordination of care.
Anticipated Discharge: 24 - 48 hours
Subjective/Interval History
-
Date of Service: April 09, 2024
No acute distress. Reports feeling well, significant improvement in chest discomfort noted following thoracentesis. Right ear ache improved with cipro ear drops
Objective Data
-
Labs:
Laboratory Results
04/09/24
07:14
WBC Pending
Hgb Pending
Hct Pending
Plt Count Pending
Sodium Pending
Potassium Pending
Chloride Pending
Carbon Dioxide Pending
BUN Pending
Creatinine Pending
Glucose Pending
Calcium Pending
Vital Signs:
Vital Signs
Temp Pulse Resp BP Pulse Ox
98.0 F 86 18 109/73 98
04/09/24 03:49 04/09/24 03:49 04/09/24 03:49 04/09/24 03:49 04/09/24 03:49
I&O
04/08/24 04/09/24 04/10/24
06:59 06:59 06:59
Intake Total 2059 / 2059 1380 / 1380
Output Total 1300 / 1300 1000 / 1000
Balance 760 / 760 380 / 380
[2024-04-09 07:53] VITALS: BP 110/74
[2024-04-09 07:58] LABS: Hematocrit 44.1 % (39.0-52.0); Hemoglobin 14.4 g/dL (13.0-18.0); Mean Corp Hgb Conc. 32.7 g/dL (33.0-37.0); Mean Corpuscular Hgb 29.2 pg (27.0-31.0); Mean Corpuscular Volume 89.5 fL (80.0-94.0); Mean Platelet Volume 10.3 fL (7.4-10.4); Platelet Count 340 10^3/uL (130-400); Red Blood Cell Count 4.93 10^6/uL (4.70-6.10); Red Cell Dist. Width 12.4 % (11.5-14.5); White Blood Cell Count 9.9 10^3/uL (4.8-10.8)
[2024-04-09 08:22] LABS: Blood Urea Nitrogen 15 mg/dl (9-20); Calcium 8.8 mg/dl (8.4-10.2); Carbon Dioxide 29 mmol/L (22-30); Chloride 103 mmol/L (98-107); Estimated Creatinine Clearance 62 ml/min; Glucose 107 mg/dl (70-99); Magnesium 2.3 mg/dl (1.6-2.3); Phosphorus 3.6 mg/dl (2.5-4.5); Potassium 5.4 mmol/L (3.5-5.1); Sodium 140 mmol/L (135-145); eGFR > 60.00
[2024-04-09] MEDS: FLOMAX 0.4 MG PO ×2 (10:10→19:30)
[2024-04-09] MEDS: COLCHICINE 0.6 MG PO ×2 (10:11→19:30)
[2024-04-09] MEDS: PEPCID 20 MG PO (10:11)
[2024-04-09] MEDS: CARAFATE 1 GRAM PO ×4 (10:12→19:30)
[2024-04-09] MEDS: CIPRO 1 DROPPERETT OTIC ×2 (10:13→19:30)
[2024-04-09] MEDS: NON-FORMULARY ITEM 20 MG PO ×2 (10:14→19:30)
[2024-04-09 11:16] VITALS: BP 120/76
--- NOTE | 2024-04-09 11:48 | W.PN.ID1 ---
Date of Service
Date of Service: April 09, 2024
Today's Communication
Observing off abx.
Assessment / Plan
# Pericarditis
# Left pleural effusion
# Raw whale meat and fermented whale blood consumption 01/2024 in [place]
# Recent urinary retention with [place] placed 03/31/24
- TTE no pericardial effusion
- 04/08/24 s/p left thoracentesis 1300cc serosanguineous fluid.
Fluid exudate. Monocytic. Gram stain: no org. Cx: neg to date
- Suspect exudative left pleural effusion is inflammatory response to pericarditis.
- Continue to hold abx for now pending pleural fluid culture/workup
- Agree with adding cytology to pleural fluid.
- Consumption of raw whale meat probably does not play a role in current condition.
Meat can be contaminated with Toxoplasmosis, Trichinella (no eosinophilia), mycoplasma.
Toxoplasma IgG, IgM, Trichinella IgG, Mycoplasma pneumonia IgG and IgM pending
Chief Complaint
-: Other (pericarditis)
Subjective / Review of Systems
Chest pain better.
Vital Signs / Physical Exam
Vital Signs
Vital Signs
Temp Pulse Resp BP Pulse Ox
98.0 F 82 18 120/76 97
04/09/24 11:16 04/09/24 11:16 04/09/24 11:16 04/09/24 11:16 04/09/24 11:16
Physical Exam
Constitutional: No Acute Distress and Comfortable
Eyes: Sclera Anicteric
Cardiovascular: Regular Rate and S1/S2
Pulmonary: Other (decreased breathe sounds)
Gastrointestinal: Soft, Non Tender and Non Distended
Extremities: Negative Edema
Neurological: AO x 3
Objective Data
Lab Data
Lab Results
04/09/24 07:14
04/09/24 07:14
ESR 43 mm/hour (0-20) H 04/08/24 07:40
Estimated Creat Clear 62 ml/min 04/09/24 07:14
Total Bilirubin 0.4 mg/dl (0.2-1.3) 04/07/24 00:18
AST 27 U/L (17-59) 04/07/24 00:18
ALT 33 U/L (0-50) 04/07/24 00:18
Alkaline Phosphatase 94 U/L (38-126) 04/07/24 00:18
C-Reactive Protein 154.10 mg/L (0.0-10.00) H 04/08/24 07:40
Most recent labs reviewed.
Micro Results:
04/08/24 11:34 Body Fluid Culture - Preliminary
Pleural Fluid No Growth After 18-24 Hours
Gram Stain - Preliminary
04/07/[address]: No evidence of pulmonary embolism. Moderate pericardial effusion slightly increased. Moderate left and minor right pleural effusion, new. Adjacent compressive atelectasis.
Care Review
Plan reviewed with: Physician (Dr. Vilchis)
--- NOTE | 2024-04-09 13:57 | W.PN.CARDCBS ---
Today's Communication / Plan
-
Plan to discharge on colchicine 0.6 twice daily
We will sign off, please recall as needed
Outpatient follow-up to be arranged
Impression / Plan
-
Impression:
Chest pain with pleuritic component
Pericardial effusion
Gastroesophageal reflux
Plan:
Presenting with chest discomfort found to have pleural and pericardial effusion on CT chest
Echo images reviewed which shows trivial pericardial effusion
Troponins negative
Overall seems most consistent with pericarditis
Discussed colchicine 0.6 mg BID x 3 months and ibuprofen 800mg TID x 2 weeks - he is hesitant to take NSAIDS d/t GERD
Recommend outpatient cardiology follow up with consideration of ischemic evaluation once improved
We will sign off, please recall as needed
Outpatient cardiology follow-up to be arranged
Progress Note - Erp Developer
Subjective
Date of Service: April 09, 2024
No acute overnight events. Patient is resting comfortably in bed today.
Objective
Labs:
04/09/24 07:14
04/09/24 07:14
Labs
Hgb 14.4 g/dL (13.0-18.0) 04/09/24 07:14
Hct 44.1 % (39.0-52.0) 04/09/24 07:14
Plt Count 340 10^3/uL (130-400) 04/09/24 07:14
Sodium 140 mmol/L (135-145) 04/09/24 07:14
Potassium 5.4 mmol/L (3.5-5.1) H 04/09/24 07:14
BUN 15 mg/dl (9-20) 04/09/24 07:14
Creatinine 1.1 mg/dL (0.7-1.3) 04/09/24 07:14
Glucose 107 mg/dl (70-99) H 04/09/24 07:14
Troponins
04/07/24
00:18
Troponin I < 0.012
Vital Signs and I&O:
Vital Signs
Temp Pulse Resp BP Pulse Ox
98.0 F 82 18 120/76 97
04/09/24 11:16 04/09/24 11:16 04/09/24 11:16 04/09/24 11:16 04/09/24 11:16
Vital Signs
Temp Pulse Resp BP Pulse Ox
98.0 F 82 18 120/76 97
04/09/24 11:16 04/09/24 11:16 04/09/24 11:16 04/09/24 11:16 04/09/24 11:16
Intake & Output
04/07/24 04/08/24 04/09/24 04/10/24
06:59 06:59 06:59 06:59
Intake Total 2059 / 2059 1380 / 1380 600 / 600
Output Total 600 / 600 1300 / 1300 1000 / 1000
Balance -600 / -600 760 / 760 380 / 380 600 / 600
Physical Exam
Physical Exam
Gen: NAD, AAOx3
HEENT: NC/AT, sclera anicteric
Neck: No JVD
CV: RRR, NL s1/s2, no M/R/G
Lungs: CTAB
Abd: S/ND
Ext: No LE edema
Skin: Warm, dry
Neuro: Non-focal
[2024-04-09 15:31] VITALS: BP 99/74
--- NOTE | 2024-04-09 19:17 | W.DCSUMMARY ---
Discharge Summary
Discharge Data
Date of Admission: 04/07/24
Date of Discharge: 04/09/24
-
Pending Results: Yes (official culture results, pathology, and serologies)
Discharge Plan
-
Patient Disposition: Home (Routine Discharge)
Discharge Diagnosis/Procedures: Pericarditis
Left Pleural Effusion status post thoracentesis
BPH requiring Portillo
GERD
Acute Otitis Externa Right ear
Hypothyroidism
Condition: Fair
Diet: Low Cholesterol
Additional Diets: 2 gram potassium restricted diet (ok to discontinue potassium restriction when repeat lab work with primary care provider shows mild hyperkalemia resolved)
Activity: As tolerated
Driving Restrictions: As prior to admission
Bathing Restrictions: None
Blood Work: Please repeat CBC and BMP with primary care provider in 1 week of discharge.
Others Tests: Repeat Chest X-ray with primary care provider in 2-4 weeks of discharge
Activity Restrictions/Additional Instructions:
Please follow up with primary care provider in 1 week of discharge, infectious disease in 2 weeks of discharge, and keep your appointment with Cardiology.
Colchicine has been prescribed for pericarditis to continue for 3 months as per cardiology recommendation.
Cipro ear drop for right ear otitis externa has been prescribed 7 days.
Please take medications as prescribed/recommended and follow up with primary care provider and/or other healthcare provider involved in your care for further adjustments to your medication regimen as necessary.
Referrals:
Cristiano Barraza MD [Family Provider] - in one week
Chandni Moulton CRNP [Specified Professional Personl] - 05/07/24 3:40 pm (You have a cardiology follow-up appointment at the [place] office with Dr. Robert Grande's nurse practitioner, Chandni. Please call with questions)
Henny Diaz MD [Active] - in two weeks
Prescriptions:
New
colchicine 0.6 mg Tablet
0.6 mg PO BID 90 Days Qty: 180 0RF
ciprofloxacin HCl 0.2 % Dropperette
0.5 mg otic (ear) Q12 7 Days Qty: 14 0RF
Continued
tamsulosin [Flomax] 0.4 mg Capsule
0.4 mg PO BID
levothyroxine [Synthroid] 50 mcg Tablet
50 mcg PO DAILY
alfuzosin [Uroxatral] 10 mg Tablet Extended Release 24 Hr
10 mg PO DAILY
rabeprazole 20 mg Tablet,Delayed Release (Dr/Ec)
20 mg PO BID
alum-mag hydroxide-simeth 200-200-20 mg/5 mL Suspension
5 ml PO PRN PRN (Reason: indigestion )
sucralfate [Carafate] 1 gram Tablet
1 g PO ACHS
Patient Comments:
1 hour after meals and at bedtime
Changed
famotidine 20 mg Tablet
20 mg PO HS Qty: 0 0RF
Discontinued
famotidine 40 mg Tablet
40 mg PO HS
Discharge Orders:
Discharge Patient (As Directed); Ordered 04/09/24
Ordered By: Funmilayo Vilchis
Discharge Date and Time
Print Language: SINHALA
[2024-04-09 19:30] VITALS: BP 105/68
[2024-04-10 15:30] LABS: Toxoplasma gondii Ab, IgG <3.0 IU/mL (<=8.8)
[2024-04-11 01:25] LABS: Mycoplasma pneumoniae IgG 0.05 U/L (<=0.09); Mycoplasma pneumoniae-IgM 0.01 U/L (<=0.76)
== END 2024-04-09 20:54 | disposition home or self-care (01) | DRG 315 ==
LOC: 4 WEST ACU 13:18
PROVIDERS: Radiology Vascular & Interventional Radiology; ADMITTING PHYSICIAN Internal Medicine; ATTENDING PHYSICIAN Internal Medicine; CONSULT PHYSICIAN Internal Medicine Cardiovascular Disease; EMERGENCY PHYSICIAN Student in an Organized Health Care Education/Training Program; FAMILY PHYSICIAN Internal Medicine; OTHER PHYSICIAN Internal Medicine Infectious Disease
PROC: 0W9B3ZZ Drainage of Left Pleural Cavity, Percutaneous Approach (ICD-10-PCS; 2024-04-08)
DX: I30.9 Acute pericarditis, unspecified (principal); J91.8 Pleural effusion in other conditions classified elsewhere; E03.9 Hypothyroidism, unspecified; K21.9 Gastro-esophageal reflux disease without esophagitis; N40.0 Benign prostatic hyperplasia without lower urinary tract symptoms; H60.501 Unspecified acute noninfective otitis externa, right ear; Z79.890 Hormone replacement therapy; Z79.899 Other long term (current) drug therapy; Z91.040 Latex allergy status
CPT/HCPCS: 88305; 32555; 71045; 71046; 71275; 80048; 80053; 80061; 82945; 83036; 83615; 83735; 83880; 83986; 84100; 84155; 84157; 84484; 85025; 85027; 85652; 86140; 86738; 86777; 86778; 87015; 87070; 87205; 88112; 88341; 88342; 89051; 93005; 93306; 96374; 99285; Q9967